=== PATIENT | female | born 1965 | race Caucasian/White ===

== ENCOUNTER 2024-06-11 21:07 | Inpatient (IN) | payer OTHER, SELFPAY ==
[2024-06-11] VITALS (7 sets, daily range): BP systolic 96–146; BP diastolic 65–94; BMI 29.1
[2024-06-11 15:49] LABS: % Basophils 0.1 % (0-2); % Eosinophils 0.4 % (0-6); % Immature Granulocytes 2.1 % (0-0.5); % Lymphocytes 8.9 % (20.5-51.1); % Monocytes 4.1 % (1.7-9.3); % Neutrophils 84.4 % (42.2-75.2); Absolute Eosinophils 0.1 10^3/uL (0-0.7); Absolute Immature Granulocytes 0.3 10^3/uL (0-0.05); Absolute Lymphocytes 1.2 10^3/uL (1.2-3.4); Absolute Monocytes 0.6 10^3/uL (0.1-0.6); Absolute Neutrophils 11.8 10^3/uL (1.4-6.5); Hematocrit 26.3 % (37.0-47.0); Hemoglobin 9.4 g/dL (12.0-16.0); Mean Corp Hgb Conc. 35.7 g/dL (33.0-37.0); Mean Corpuscular Hgb 33.9 pg (27.0-31.0); Mean Corpuscular Volume 94.9 fL (81.0-99.0); Mean Platelet Volume 10.4 fL (7.4-10.4); Nucleated Red Blood Cells % 0 %; Platelet Count 226 10^3/uL (130-400); Red Blood Cell Count 2.77 10^6/uL (4.20-5.40); Red Cell Dist. Width 12.8 % (11.5-14.5)
[2024-06-11 15:57] LABS: Urine Albumin Trace (Neg - Trace); Urine Bilirubin Negative (Negative); Urine Character Clear (Clear); Urine Color Yellow; Urine Glucose 3+ (Negative); Urine Ketone Negative (Negative); Urine Leukocyte Trace (Negative); Urine Nitrite Negative (Negative); Urine Occult Blood Negative (Negative); Urine Urobilinogen Negative (Neg - 1+)
[2024-06-11 16:09] LABS: Urine Bacteria Few (Negative); Urine Red Blood Cell 0-2 /HPF (0-2)
[2024-06-11 16:15] LABS: ALT (SGPT) 17 U/L (0-35); AST (SGOT) 27 U/L (14-36); Albumin 4.2 g/dl (3.5-5.0); Alkaline Phosphatase 139 U/L (38-126); Blood Urea Nitrogen 39 mg/dl (7-17); Calcium 9.1 mg/dl (8.4-10.2); Carbon Dioxide 15 mmol/L (22-30); Chloride 100 mmol/L (98-107); Glucose 609 mg/dl (70-99); Lipase 457 U/L (23-300); Potassium 4.4 mmol/L (3.5-5.1); Sodium 129 mmol/L (135-145); Total Bilirubin 0.5 mg/dl (0.2-1.3); Total Protein 6.8 g/dl (6.3-8.2); eGFR 36.69
--- NOTE | 2024-06-11 16:22 | ED.GENMED ---
History of Present Illness
General
Chief Complaint: Abdominal Pain
Source: patient
Exam Limitations: none
Time Seen by Provider: 06/11/24 16:10
Nursing documentation reviewed up to this point in time: agreed with
History of Present Illness
History of Present Illness:
58-year-old female past medical history of insulin-dependent diabetes, hypertension hyperlipidemia presenting to the emergency department with 3 days of worsening right lower quadrant abdominal pain. Denies any nausea vomiting diarrhea or urinary
symptoms. She self-admittedly has not been checking her sugar level over the past few months
Past History
Past History
ED Past Medical History: None
ED Past Surgical History: None
Review of Systems
Review of Systems
Allergies reviewed?: Yes
All Other Systems: ROS reviewed and negative except as documented in HPI and ROS
Phy Exam
Physical Exam
Physical Exam:
GENERAL: Alert , in no apparent distress
EYE: pupils equal and reactive
NECK: Supple, no significant adenopathy.
ENT: o/p clr, mmm.
CARDIAC: Regular rate and rhythm .
LUNGS: Clear breath sounds bilaterally, no acute respiratory distress, no wheezes/rales/rhonchi
ABDOMEN: Right lower quadrant pain to palpation otherwise soft benign abdomen
NEUROLOGICAL: Alert and oriented, no focal neuro deficits
SKIN: Warm and dry, skin intact.
MUSCULOSKELETAL: No edema, well perfused.
PSYCH: Normal and appropriate interaction.
Course
Orders/Labs/Results
Orders:
Orders
06/11/24 15:30
Complete Blood Count/With Diff Urgent
Comprehensive Metabolic Panel Urgent
Lipase Urgent
Urinalysis Reflex To Culture Urgent
Date Specimen was Collected: 06/11/24
Time Specimen was Collected: 15:18
Urine Microscopic Reflex Cult Urgent
06/11/24 16:21
0.9% Sodium Chloride 1000 ml [Nss] 1,000 ml IV BOLUS
06/11/24 16:38
CT Abd/Pel (IV only)-DH only Urgent
Comment:
Reason For Exam: rlq pain
06/11/24 16:45
B-Hydroxybutyrate Urgent
Venous Blood Gas Urgent
%Oxygen/Room Air: 99
06/11/24 16:51
Lactic Acid Urgent
06/11/24 18:15
Reg Insulin 100 Units/100 ml [Novolin R Insulin Infusion] 100 units in 100 ml IV ORDERED RATE
06/11/24 19:34
CefTRIAXone [Rocephin] 1,000 mg IV NOW STA
MetroNIDAZOLE 500 MG/100 ML [Flagyl 500 mg] 100 ml IV NOW
06/11/24 19:44
HYDROmorphone [Dilaudid] 0.5 mg IV NOW STA
06/11/24 20:14
Admit/Transfer Patient As Directed
Co-Sign Provider:
Level of Care: Inpatient admission
Assign to:: ICU
Physician / Group: hospitalist
Diagnosis: dka, appendicitis
Reason for Hospitalization: appendicitis
Expected length of stay greater than two midnights?: Yes
ELOS- Estimated Length of Stay in days: 2
I certify the patient meets the requirements for IP care: Yes
PRN Pain Medication Management As Directed
May give lesser potent ordered pain med per pt: Yes
preference::
Protocol:: Medication orders for pain may be administered in a
manner that supports deferring to patient preference
when the pt is:
- Requesting an ordered lesser potent pain medication.
Least to most potent pain medications are defined
as: acetaminophen < NSAID < tramadol < opioids
(morphine, oxycodone, hydromorphone).
- Requesting a lesser dose of the same medication IF
ORDERED.
- Requesting a less intrusive route of administration
if both routes are prescribed by the provider (PO <
IV).
06/11/24 20:15
Code Status As Directed
Resuscitation Status: Full Code
Abnormal Lab Results
06/11/24 06/11/24 06/11/24
15:30 16:45 19:42
WBC 14.0 H 10^3/uL
(4.8-10.8)
RBC 2.77 L 10^6/uL
(4.20-5.40)
Hgb 9.4 L g/dL
(12.0-16.0)
Hct 26.3 L %
(37.0-47.0)
MCH 33.9 H pg
(27.0-31.0)
Abs Immat Gran (auto) 0.3 H 10^3/uL
(0-0.05)
Absolute Neuts (auto) 11.8 H 10^3/uL
(1.4-6.5)
Immature Gran % 2.1 H %
(0-0.5)
Neutrophils % 84.4 H %
(42.2-75.2)
Lymphocytes % 8.9 L %
(20.5-51.1)
VBG pH 7.28 L
(7.32-7.43)
VBG HCO3 17.4 L mmol/L
(22-27)
Sodium 129 L mmol/L
(135-145)
Carbon Dioxide 15 L mmol/L
(22-30)
BUN 39 H mg/dl
(7-17)
Creatinine 1.6 H mg/dL
(0.6-1.0)
Glucose 609 H* mg/dl
(70-99)
Alkaline Phosphatase 139 H U/L
(38-126)
Lipase 457 H U/L
(23-300)
Leukocyte Esterase Rfl Trace A
(Negative)
Urine Bacteria (Reflex) Few A
(Negative)
Urine Glucose 3+ A
(Negative)
POC Glucose 282 H mg/dl
(70-99)
06/11/24 15:30
06/11/24 15:30
Vital Signs
Initial and Last Documented VS:
Initial Vital Signs
Temp Pulse Resp BP Pulse Ox
97.8 F 110 16 143/79 98
06/11/24 15:14 06/11/24 15:14 06/11/24 15:14 06/11/24 15:14 06/11/24 15:14
Last Documented Vital Signs
Temp Pulse Resp BP Pulse Ox
98.2 F 110 14 110/78 99
06/11/24 18:00 06/11/24 20:15 06/11/24 20:15 06/11/24 18:06 06/11/24 18:45
MDM/Problems Addressed
MDM/Problems Addressed:
58-year-old female presenting to the emergency department with worsening right lower quad abdominal pain over the past 3 days. No fevers mildly tachycardic on arrival. Does have a white count of 14. Sugar level 609. She admittedly has not been
checking her sugar over the past few months. Has been taking her routine dose of insulin but is unsure if this is enough insulin. Creatinine level 1.6 BUN of 39 does appear clinically dehydrated started on a liter of fluid. CT scan showing
appendicitis. Plan to admit for further care overnight and surgical consultation.
*Critical Care Note
Total Time (30-74mins, 75-104mins- exclusive of procedures): Not Applicable
ED Attending Note
-
Portions of this chart may have been created with voice recognition software.� Occasional wrong word or��sound alike� substitutions may have occurred due to the inherent limitations of voice recognition software.
Discharge Plan
Departure
Patient Disposition: Admit
Date of Disposition: 06/11/24
Time of Disposition: 20:29
Admit to: Med/Surg
Admit to doctor: Shashank
Presentation/result/management discussed w/ accepting MD/DO: Hospitalist
Patient with high blood pressure during this ER visit?: No
Condition: Good
Covid-19: Not Applicable
Discharge Problem:
DKA (diabetic ketoacidosis), Acute appendicitis
Prescriptions:
No Action
cyanocobalamin (vitamin B-12) 1,000 MCG tablet
1,000 mcg PO DAILY
montelukast 10 MG tablet
10 mg PO QPM
melatonin 5 MG tablet
10 mg PO HS
acetaminophen [Tylenol] 325 mg Tablet
650 mg PO Q6HPRN PRN (Reason: mild pain)
metoprolol succinate [Toprol XL] 50 mg Tablet Extended Release 24 Hr
50 mg PO DAILY
fenofibrate micronized [Tricor] 134 mg Capsule
134 mg PO DAILY
alprazolam [Xanax] 0.5 mg Tablet
0.5 mg PO BIDPRN PRN (Reason: anxiety)
losartan 25 mg Tablet
25 mg PO DAILY
rosuvastatin [Crestor] 40 mg Tablet
40 mg PO DAILY
Trulicity 0.75 mg/0.5 mL Pen Injector
0.75 mg SC TU
Asmanex HFA 100 mcg/actuation Hfa Aerosol Inhaler
1 inh INHALATION R BID
insulin glargine [Lantus U-100 Insulin] 1,000 UNITS/10 ML solution
40 units SC HS
insulin aspart U-100 [Novolog FlexPen U-100 Insulin] 300 UNITS/3 ML insulin pen
5 - 10 units SC AC
Referrals:
Jean Marie Mancia MD [Family Provider] -
Interventions
Interventions:
*Risk Screen - Suicide Last Done: 06/11/24 15:14
*General Assessment Last Done: 06/11/24 17:00
*Neglect/Abuse Screening Last Done: 06/11/24 15:14
ED- Fall Risk Assessment Last Done: 06/11/24 17:00
SZ-Vvdejr-Sftdfdudxi Assessment Last Done: 06/11/24 17:00
Discharge Date and Time
Print Language: WELSH
[2024-06-11] MEDS: NSS 1000 IV (16:42)
[2024-06-11 17:00] LABS: Venous Blood Gas B.E. -8.6 mmol/L (-4 to +4); Venous Blood Gas HCO3 17.4 mmol/L (22-27); Venous Blood Gas O2 Sat % 62.2 %; Venous Blood Gas pCO2 37 mmHg (35-48); Venous Blood Gas pH 7.28 (7.32-7.43); Venous Blood Gas pO2 37 mmHg (30-50)
[2024-06-11 17:10] LABS: Lactic Acid 1.2 mmol/L (0.7-2.0)
[2024-06-11 17:27] LABS: B-Hydroxybutyrate 0.08 mmol/L (0.02-0.27)
[2024-06-11] MEDS: NOVOLIN R INSULIN INFUSION 100 IV (18:33)
[2024-06-11 19:44] LABS: Glucose - Point of Care 282 mg/dl (70-99)
[2024-06-11] MEDS: ROCEPHIN 1000 MG IV (19:59)
[2024-06-11] MEDS: DILAUDID 0.5 MG IV (20:01)
[2024-06-11] MEDS: FLAGYL 500 MG 100 IV (20:03)
--- NOTE | 2024-06-11 20:03 | HPS.HSE ---
Family Physician
-
Family Physician: Jean Marie Mancia MD
Chief Complaint
-
Abdominal pain
History of Present Illness
This is a 58-year-old with past medical history significant for asthma, insulin-dependent diabetes and hyperlipidemia who presents to the emergency department with approximately 2 to 3 days of abdominal pain.
Patient reports abdominal pain began suddenly about 2 days ago and is localized to the right lower quadrant. There was no associated nausea or vomiting. She denies having any fevers or chills. She did not measure her temperature at home. She
reported that she went to urinate this morning and had a severe abdominal pain and ripping sensation in her right lower quadrant. She denies any urinary symptoms. She called her physician who recommended that she come to the emergency department
due to the severe pain. Patient with that she did take her Lantus the previous evening. She did not take her morning insulin today.
In the emergency department she was found to be normotensive with a blood pressure of 110/78 pulse of 103 respiratory was elevated at 29 and she was afebrile satting 99% on room air. She abnormal electrolytes with sodium of 129, bicarb of 15 with
elevated anion gap. Beta-hydroxybutyrate was only 0.08. She had elevations in BUN/creatinine to 39 and 1.6. Her lipase was also elevated with otherwise normal LFTs. pH 7.28. CBC with a white count of 14, hemoglobin 9.1 platelet count of 226.
CT of the abdomen pelvis shows acute uncomplicated appendicitis.
Medical History
Past Medical History
Past Medical History: Reports Asthma, Hypercholesterolemia and IDDM
Past Surgical History: Reports
Social History
Tobacco: Non-smoker
Alcohol: Occasional
Drug: None
Living: With Family
Employment: Employed
Family History
Family History: Not pertinent
Allergies / Home Medications
Allergies reflects when Allergies were last updated in [employer].
Home Medications with original date entered in [employer]
Allergy/Medication List:
Allergies
Allergy/AdvReac Type Severity Reaction Status Date / Time
Penicillins Allergy hot, Verified 06/11/24 15:16
hives,
itchy
Home Medications
cyanocobalamin (vitamin B-12) 1,000 mcg tablet 1,000 mcg PO DAILY 11/21/19
melatonin 5 mg tablet 10 mg PO HS 11/21/19
montelukast 10 mg tablet 10 mg PO QPM 11/21/19
acetaminophen 325 mg tablet (Tylenol) 650 mg PO Q6HPRN PRN mild pain 06/11/24
alprazolam 0.5 mg tablet (Xanax) 0.5 mg PO BIDPRN PRN anxiety 06/11/24
dulaglutide 0.75 mg/0.5 mL subcutaneous pen injector (Trulicity) 0.75 mg SC TU 06/11/24
fenofibrate micronized 134 mg capsule 134 mg PO DAILY 06/11/24
insulin aspart U-100 100 unit/mL (3 mL) subcutaneous pen (Novolog FlexPen U-100 Insulin aspart) 5 - 10 units SC AC 06/11/24
insulin glargine 100 unit/mL subcutaneous solution (Lantus U-100 Insulin) 40 units SC 06/11/24
losartan 25 mg tablet 25 mg PO DAILY 06/11/24
metoprolol succinate 50 mg tablet,extended release 24 hr (Toprol XL) 50 mg PO DAILY 06/11/24
mometasone 100 mcg/actuation HFA aerosol inhaler (Asmanex HFA) 1 inh inhalation R BID 06/11/24
rosuvastatin 40 mg tablet (Crestor) 40 mg PO DAILY 06/11/24
Review of Systems
-
History Source: Patient
Constitutional: Reports No Symptoms
EENT: Reports No Symptoms
Respiratory: Reports No Symptoms
Cardiac: Reports No Symptoms
Abdomen/GI: Reports Abdominal Pain
: Reports No Symptoms
Musculoskeletal: Reports No Symptoms
Skin: Reports No Symptoms
Neurological: Reports No Symptoms
Endocrine: Reports No Symptoms
Hematologic/Lymphatic: Reports No Symptoms
Psych: Reports No Symptoms
Physical Exam
Vital Signs
Vital Signs
Temp Pulse Resp BP Pulse Ox
98.2 F 103 29 110/78 99
06/11/24 18:00 06/11/24 18:45 06/11/24 18:45 06/11/24 18:06 06/11/24 18:45
Physical Exam
General: Well Developed, Well Nourished and Pain
HEENT: NormoCephalic, Anicteric, Moist mucous membranes and Atraumatic
Respiratory: Clear
Cardiac: S1/S2 and Regular Rhythm
Breast: Deferred by me
GI: Soft, Non Distended, Normal Bowel Sounds and Tender
Rectal: Deferred by Provider
Genito-urinary: Deferred by me
Musculoskeletal: No Clubbing, No Cyanosis and No Edema
Skin: Warm
Neuro: AO x 3 and Nonfocal/grossly intact
Hematologic/Lymphatic: No Lymphadenopathy
Psych: Calm
Laboratory Results
-
06/11/24 15:30
06/11/24 15:30
Laboratory Results
Lactic Acid 1.2 mmol/L (0.7-2.0) 06/11/24 16:51
Total Bilirubin 0.5 mg/dl (0.2-1.3) 06/11/24 15:30
AST 27 U/L (14-36) 06/11/24 15:30
ALT 17 U/L (0-35) 06/11/24 15:30
Alkaline Phosphatase 139 U/L (38-126) H 06/11/24 15:30
Lipase 457 U/L (23-300) H 06/11/24 15:30
Data Reviewed
-
CT Scan: Report Reviewed by me
Lab Data: Labs Reviewed by me
Old Records: Reviewed
Impression/Plan
-
IMPRESSION:
58 y.o female with hyperglycemia, DKA and uncomplicated appendicitis.
PLAN:
1. Appendicitis
- admit tomed/surg
- surgery aware
- no recent hospitalizations or abx use, pcn allergy, continue ceftriaxone/flagyl for now
- npo, pain control and antiemetics
2. DKA - 2/2 acute inflammatory process. Mild. AG 14. Glucose 600 initially, now 300. DKA resolved.
- continue iv fluids
- insulin sliding scale moderate q6h
3. HTN
- hold losartan for now
- continue metoprolol
4. TOOTIE - suspect hypovolemic vs ATN
- hold losartan
- iv fluids
- avoid further nephrotoxins
4. HLD
- hold statin
5. Asthma - stable.
- continue montelukast, prn nebs
6. Pancreatitis - No obvious etiology. Reported that she abstained from etoh until a few days ago when she had a small drink. No biliary anomaly on CT (The liver, spleen, kidneys, adrenal glands and pancreas are within normal limits. Gallbladder
is without calcified stones)
- trend lfts
- consider u/s for radioopaque stones
- npo, iv fluids for now
DVT PPX - heparin sq
Code status - full code
[2024-06-11 20:49] LABS: Glucose - Point of Care 150 mg/dl (70-99)
[2024-06-11 21:47] LABS: Glucose - Point of Care 141 mg/dl (70-99)
[2024-06-12] VITALS (10 sets, daily range): BP systolic 107–144; BP diastolic 70–87; BMI 28.4
[2024-06-12 00:49] LABS: Glucose - Point of Care 185 mg/dl (70-99)
[2024-06-12] MEDS: NOVOLOG FLEXPEN-MODERATE RESISTANCE 1 UNITS SC ×2 (01:34→06:29)
[2024-06-12] MEDS: HEPARIN 5000 UNITS SC ×2 (01:34→17:09)
[2024-06-12] MEDS: DILAUDID 0.5 MG IV ×3 (01:34→20:29)
[2024-06-12] MEDS: LR 1000 IV (01:35)
[2024-06-12] MEDS: FLAGYL 500 MG 100 IV ×3 (04:38→20:29)
--- NOTE | 2024-06-12 05:03 | PTCARENOTE ---
Pt received from ED via stretcher. Ambulated to bed independently w/o incident. Oriented to surroundings and plan of care discussed. Admission and assessment completed. #18 RAC patent, #22 LW redressed and LR running at 125 mL/hr w/o
complication. Medicated w/IV dilaudid for RLQ abd pain (refer to MAR). Instructed to ring for assist when ambulating to BR, verbalizes understanding. Call shannon w/in reach.
[2024-06-12 06:24] LABS: Glucose - Point of Care 179 mg/dl (70-99)
[2024-06-12 06:38] LABS: Hematocrit 21.3 % (37.0-47.0); Hemoglobin 7.6 g/dL (12.0-16.0); Mean Corp Hgb Conc. 35.7 g/dL (33.0-37.0); Mean Corpuscular Hgb 33.9 pg (27.0-31.0); Mean Corpuscular Volume 95.1 fL (81.0-99.0); Mean Platelet Volume 10.4 fL (7.4-10.4); Platelet Count 142 10^3/uL (130-400); Red Blood Cell Count 2.24 10^6/uL (4.20-5.40); Red Cell Dist. Width 12.7 % (11.5-14.5); White Blood Cell Count 10.4 10^3/uL (4.8-10.8)
[2024-06-12 06:40] LABS: INR 1.08; PT 14.6 Sec (11.4-14.6)
[2024-06-12 06:58] LABS: Blood Urea Nitrogen 27 mg/dl (7-17); Calcium 8.5 mg/dl (8.4-10.2); Carbon Dioxide 12 mmol/L (22-30); Chloride 110 mmol/L (98-107); Estimated Creatinine Clearance 42 ml/min; Glucose 164 mg/dl (70-99); Sodium 136 mmol/L (135-145); eGFR 51.82
[2024-06-12 07:03] LABS: Potassium 3.9 mmol/L (3.5-5.1)
[2024-06-12 07:37] LABS: Hepatitis C Antibody Negative (Negative)
[2024-06-12] MEDS: HEPARIN SC ×2 (08:41→13:29)
[2024-06-12] MEDS: SODIUM BICARBONATE 1150 MEQ IV (08:41)
[2024-06-12] MEDS: TOPROL XL PO (08:42)
[2024-06-12] MEDS: ROCEPHIN 2000 MG IV (09:29)
[2024-06-12] MEDS: STERILE WATER FOR INJECTION 20 ML IV (09:30)
--- NOTE | 2024-06-12 10:37 | CON.GS ---
Addendum entered and electronically signed by Collin Davis MD 06/12/24 10:58:
I saw and examined the patient.
The C Java Developer's note was reviewed and I agree with the note.
Comment: 1 week of symptoms, generalized abd pain that migrated to RLQ. Poorly compliant with IDDM. ttp to rlq on exam. CT c/w acute uncomplicated appendicitis. OCTOR for lap appy
Original Note:
Consultation
-
Date/Time Consultation Requested: 06/12/248
Requesting Provider: Shashank
Medical History
-
Chief Complaint: RLQ pain
History of Present Illness:
Ms Colbert is a 58 yo female with IDDM and asthma who developed generalized abdominal pain on Thursday 06/08. She thought she had caught a GI bug and has been working from home since. Around Saturday, the pain localized to the RLQ and has persisted in
that location since. She has tried Tylenol and hot packs without much benefit. She denies fevers or chills. She denies nausea or vomiting. She does note pain with urination in her pelvis. Last night, she notes the pain was so bad she was tearful and
called her primary care doctor's service and was told to come to the ED for evaluation. On exam, she is markedly tender to the RLQ with some tenderness extending into the lower pelvis. She is not sure what her blood sugars have been at home as she
notes [facility] has been out of stock with her CGM device for some months and she has not been using her glucometer, but does note she has been taking her Lantus as per usual, she does have follow up with her PCP to discuss her diabetes on Saturday.
Past Medical History
Past Medical History: Asthma, Hypercholesterolemia and IDDM
Past Surgical History: and Orthopedic (ORIF left arm)
Social History
Tobacco: Non-Smoker
Alcohol: Occasional
Drug: None
Living: With Family
Employment: Employed
Family History
Family History: Reviewed & Not Pertinent
Allergies / Home Medications
Allergy/AdvReac Type Severity Reaction Status Date / Time
Penicillins Allergy hot, Verified 06/11/24 15:16
hives,
itchy
�Medication �Instructions �Recorded �Confirmed �Type
cyanocobalamin (vitamin B-12) 1,000 mcg PO DAILY 11/21/19 06/11/24 History
1,000 mcg tablet
melatonin 5 mg tablet 10 mg PO HS 11/21/19 06/11/24 History
montelukast 10 mg tablet 10 mg PO QPM 11/21/19 06/11/24 History
acetaminophen 325 mg tablet 650 mg PO Q6HPRN PRN mild pain 06/11/24 06/11/24 History
(Tylenol)
alprazolam 0.5 mg tablet (Xanax) 0.5 mg PO BIDPRN PRN anxiety 06/11/24 06/11/24 History
dulaglutide 0.75 mg/0.5 mL 0.75 mg SC 06/11/24 06/11/24 History
subcutaneous pen injector
(Trulicity)
fenofibrate micronized 134 mg 134 mg PO DAILY 06/11/24 06/11/24 History
capsule
insulin aspart U-100 100 unit/mL 5 - 10 units SC 06/11/24 06/11/24 History
(3 mL) subcutaneous pen (Novolog
FlexPen U-100 Insulin aspart)
insulin glargine 100 unit/mL 40 units SC 06/11/24 06/11/24 History
subcutaneous solution (Lantus
U-100 Insulin)
losartan 25 mg tablet 25 mg PO DAILY 06/11/24 06/11/24 History
metoprolol succinate 50 mg 50 mg PO DAILY 06/11/24 06/11/24 History
tablet,extended release 24 hr
(Toprol XL)
mometasone 100 mcg/actuation HFA 1 inh inhalation R BID 06/11/24 06/11/24 History
aerosol inhaler (Asmanex HFA)
rosuvastatin 40 mg tablet (Crestor) 40 mg PO DAILY 06/11/24 06/11/24 History
Review of Systems
-
History Source: Patient
All other systems: Negative unless noted
A 10 point review of systems was completed, and was negative except as per HPI.
Physical Exam
Vital Signs
Temp Pulse Resp BP Pulse Ox
98.3 F 88 16 107/70 98
06/12/24 08:03 06/12/24 08:42 06/12/24 08:03 06/12/24 08:42 06/12/24 08:03
06/11/24 06/12/24 06/13/24
06:59 06:59 06:59
Actual Weight 65.998 kg
Body Mass Index (BMI) 28.4
Lab Results
06/12/24 05:29
WBC 10.4 10^3/uL (4.8-10.8) 06/12/24 05:29
Hgb 7.6 g/dL (12.0-16.0) L 06/12/24 05:29
Hct 21.3 % (37.0-47.0) L 06/12/24 05:29
Plt Count 142 10^3/uL (130-400) D 06/12/24 05:29
Abs Immat Gran (auto) 0.3 10^3/uL (0-0.05) H 06/11/24 15:30
Neutrophils % 84.4 % (42.2-75.2) H 06/11/24 15:30
Physical Exam
General: Well Developed
HEENT: Moist Mucous Membranes
Respiratory: Non Labored Respirations
GI: Soft, Non Distended and Tender (RLQ into pelvis)
Skin: Warm and Dry
Neuro: Awake, Alert and AO x 3
Psych: Calm
Data Reviewed
-
CT Scan: Image Personally Visualized and interpreted, Report Reviewed by me, Discussed with Physician and Discussed with Patient
Labs: Labs Reviewed by me, Discussed with Physician and Discussed with Patient
Old Records: Reviewed
Assessment / Plan
-
58 yo female with a h/o poorly controlled IDDM with a 5 day history of abdominal pain which was initially generalized and then localized to the RLQ with tenderness present on exam. Acidotic on presentation with blood glucose of 609 consistent with
DKA in setting of acute infection. Anion gap of 14 on AM labs, with bicarb infusing. Cr. 1.6 on presentation, now trended down to 1.2. Blood glucose now 164, A1c pending. Normal potassium. Leukocytosis on presentation of 14.0 now 10.4 s/p ABX. Ct
imaging, history and exam consistent with acute appendicitis. Afebrile with normal vital signs.
--Plan OR for laparoscopic appendectomy
--Continue ABX
--Trend labs, management of acidosis as per primary team
--Keep NPO
--IVF as per primary team
--Analgesics/antiemetics prn
[2024-06-12 10:39] LABS: Glycohemoglobin (HgbA1c) 9.6 % (4.0-5.6)
--- NOTE | 2024-06-12 11:21 | W.PN.HOSP.TC ---
Today's Communication/Plan
-
see outlined plan
Assessment / Plan
Assessment / Plan
Assessment:
Acute uncomplicated appendicitis
- GS following, utility worker production for OR/appendectomy today
- continue Rocephin, Flagyl, day 1
- pain control, anti-emetics, IVF while NPO
TOOTIE with acute metabolic acidosis in setting of appendicitis, uncontrolled IDDM
Acute hyponatremia
- continue IVF - switch to bicarbonate IVF and repeat BMP this afternoon
- hold nephrotoxins
Poorly controlled IDDM, exacerbated by acute appendicitis
- labelled initially as DKA but initial gap 14 and pH on VBG 7.28, no ketone on UA, BHB normal. not consistent with DKA
- s/p insulin drip; BS <200 rapidly
- continue SSI while NPO
- GROMMET MAN consulted
- A1c 9.6%
Elevated Lipase
- not consistent with pancreatitis, likely reactive to acute appendicitis
- repeat in AM
Essential HTN
- continue BB perioperatively
- hold ARB
HLD - hold statin
Asthma - stable.
- continue montelukast, prn nebs
DVT ppx: SC heparin
Code: Full
Anticipated Discharge: > 48 hours
Subjective/Interval History
-
Date of Service: June 12, 2024
reports RLQ and lower abd pain c/w appendicitis
awaiting surgery timing
Objective Data
-
Labs:
Laboratory Results
06/12/24 06/12/24 06/12/24
00:38 05:29 14:00
WBC 10.4
Hgb 7.6 L
Hct 21.3 L
Plt Count 142 D
PT 14.6
INR 1.08
Sodium Cancelled 136 Pending
Potassium Cancelled 3.9 Pending
Chloride Cancelled 110 H Pending
Carbon Dioxide Cancelled 12 L* Pending
BUN Cancelled 27 H Pending
Creatinine Cancelled 1.2 H Pending
Glucose Cancelled 164 H Pending
Calcium Cancelled 8.5 Pending
Vital Signs:
Vital Signs
Temp Pulse Resp BP Pulse Ox
98.3 F 88 16 107/70 98
06/12/24 08:03 06/12/24 08:42 06/12/24 08:03 06/12/24 08:42 06/12/24 08:03
I&O
06/11/24 06/12/24 06/13/24
06:59 06:59 06:59
Intake Total 100 / 100
Balance 100 / 100
Physical Exam
-
General: Appears in Distress and Pain
HEENT: Normocephalic and Atraumatic
Respiratory: Clear to Auscultation; Negative Wheezes or Rales
Cardiac: Regular Rhythm and S1/S2
GI: Tender (RLQ into pelvis)
Musculoskeletal: No Edema
Neuro: AO x 3
Psych: Calm
Data Reviewed
-
Total Time Spent with Patient (in minutes): 45
Diagnostic Radiology: Report Reviewed by me
Labs: Labs Reviewed by me
[2024-06-12 11:41] LABS: Glucose - Point of Care 153 mg/dl (70-99)
--- NOTE | 2024-06-12 11:56 | PN.DE.MGMTRT ---
Insulin Management
- -
06/12/2024 Diabetes Management Consult
Patient admitted 06/11 with abdominal pain - appendicitis. PMH diabetes for 10 years, HTN, HLD. Prior to admission was taking trulicity .75 on Saturday, 5 - 10 units of novolog AC and 40 units lantus @ hs. A1C on admission 9.6%, cr 1.2, eGFR 57.82.
Patient is awake alert and oriented resting in bed, able to discuss diabetes management. at bedside and very supportive. Patient states she originally took pills for about 5 years but then was switched to insulin. She has a working
glucose monitor and has used a CGM but states they are out of stock for 6 months so has not tested her glucose for 6 months.
Glucose on admission 609, has received fluids. For OR today.
Will give 10 units of lantus now and 40 @ hs. Will start 5 units novolog AC with moderate corrective in AM. When appropriate diet should be 1600 calories.
Discussed at length importance of glucose control, she states she knows by how she feels how much insulin to take. Advised it is best to test glucose before administering insulin. endorsed importance of testing.
Will follow.
Diabetes History
- -
Type of Diabetes: 2 requiring insulin
Pre-Admission Diabetes Regimen
06/11/24 06/12/24 06/12/24
15:30 00:38 05:29
Creatinine 1.6 H Cancelled 1.2 H
Lab Results
Hemoglobin A1c 9.6 % (4.0-5.6) H 06/12/24 05:29
Insulin Pump Settings
IP Diabetes Regimen
06/11/24 06/11/24 06/11/24
15:30 19:42 20:47
Glucose 609 H*
POC Glucose 282 H 150 H
06/11/24 06/12/24 06/12/24
21:45 00:38 00:48
Glucose Cancelled
POC Glucose 141 H 185 H
06/12/24 06/12/24 06/12/24
05:29 06:23 11:39
Glucose 164 H
POC Glucose 179 H 153 H
Patient Education
[2024-06-12] MEDS: NOVOLOG FLEXPEN-MODERATE RESISTANCE SC (12:56)
--- NOTE | 2024-06-12 14:43 | OR.RPT ---
Operative Report
Operative Report
Primary Surgeon: Ryan
Assisting: AP Higginbotham Muntzer, RNFA
Pre-op Diagnosis: Acute appendicitis
Post-op Diagnosis: Same
Procedure Performed: Laparoscopic appendectomy
Anesthesia Type: GETA
Specimen / Cultures: Appendix
Estimated Blood Loss: 5cc
Complications: None immediate
Operative Findings: Inflamed distal appendix adherent to pelvic sidewall and fallopian tube; no pus or gangrene, no free fluid in pelvis
Date of Surgery: 06/12/24
Indications: This 58F developed right lower quadrant abdominal pain and on workup was found to have acute appendicitis. She was also severely hyperglycemic, she responded well to insulin gtt. Laparoscopic appendectomy was planned.
Description of procedure: The patient was placed on the operating table in the supine position. General anesthesia was induced. A time-out was completed verifying correct patient, procedure, site, positioning, and special equipment prior to
beginning this procedure. An orogastric tube was placed. The abdomen was prepped and draped in the usual sterile fashion. A stab incision was made in left upper quadrant and the Veress needle was inserted. Proper position was confirmed by aspiration
and saline meniscus test. The abdomen was insufflated with carbon dioxide to a pressure of 12 mmHg. The patient tolerated insufflation well.
A 5mm optical trocar was then inserted at the left lower quadrant. The laparoscope was inserted and the abdomen inspected. No injuries from initial trocar placement or Veress needle insertion were noted. Additional trocars were then inserted in the
following locations: a 12-mm trocar at the umbilicus and a 5-mm trocar midline in the suprapubic space. The abdomen was inspected and no abnormalities were found. The table was placed in the Trendelenburg position with the right side up. The
appendix was severely inflamed at the distal aspect and adherent t pelvic sidewall and fallopian tube. It was gently bluntly teased away from those structures. A window was created in the appendiceal mesentery and the appendix was taken at its base
with the laparoscopic linear cutting stapler with a 45mm fraser load. It was then liberated from remaining mesenteric and inflammatory attachments with the voyant device taking care to protect the terminal ileum and fallopian tube. The appendix was
placed in an endoscopic retrieval bag, removed through the umbilical port, and passed off the table as a specimen.
We then turned our attention to the staple line, which was noted to be hemostatic. All free fluid was suctioned. The umbilical trocar site was closed at the fascial level laparoscopically with 2-0 PDS under direct vision. Secondary trocars were
removed under direct vision and noted to be hemostatic. The laparoscope was withdrawn and the abdomen was allowed to collapse. The skin was closed with subcuticular sutures of 4-0 monocryl and topical skin adhesive. The orogastric tube was removed.
The patient tolerated the procedure well and was taken to the postanesthesia care unit in stable condition.
[2024-06-12 15:29] LABS: Glucose - Point of Care 192 mg/dl (70-99)
[2024-06-12] MEDS: SUBLIMAZE 25 MCG IV (15:51)
[2024-06-12] MEDS: NOVOLOG vial 2 UNITS SC (16:04)
[2024-06-12 17:16] LABS: Glucose - Point of Care 298 mg/dl (70-99)
[2024-06-12] MEDS: NOVOLOG FLEXPEN-MODERATE RESISTANCE 5 UNITS SC (17:17)
--- NOTE | 2024-06-12 17:40 | PN.DIAED10 ---
Update Note
- Diabetes Education Update Note
Notes:
06/12/2024 Diabetes Management follow up
Returned to see patient, doing well eating dinner. Received AC novolog. Discussed with patient trying to be consistent with amount of carbohydrate eaten at each meal, she is agreeable. States she is not sure where her meter is or the name of it.
Recommended , who is at bedside, to obtain [employer] glucose monitor for home testing. To test glucose before each meal and HS, to administer insulin 10 minutes before each meal.
[2024-06-12 21:24] LABS: Blood Urea Nitrogen 33 mg/dl (7-17); Calcium 8.7 mg/dl (8.4-10.2); Carbon Dioxide 16 mmol/L (22-30); Chloride 103 mmol/L (98-107); Estimated Creatinine Clearance 34 ml/min; Glucose 541 mg/dl (70-99); Potassium 4.7 mmol/L (3.5-5.1); Sodium 130 mmol/L (135-145); eGFR 39.65
[2024-06-12 21:33] LABS: Glucose - Point of Care 549 mg/dl (70-99)
[2024-06-12 21:35] LABS: Glucose - Point of Care 554 mg/dl (70-99)
[2024-06-12] MEDS: NOVOLOG FLEXPEN 12 UNITS SC (21:54)
[2024-06-12] MEDS: MELATONIN 10 MG PO (21:54)
[2024-06-12] MEDS: LANTUS 0.4 UNITS SC (21:54)
[2024-06-12 22:27] LABS: Vitamin B12 696 pg/ml (239-931)
[2024-06-13] MEDS: HEPARIN 5000 UNITS SC ×2 (00:15→09:26)
[2024-06-13 00:16] LABS: Glucose - Point of Care 456 mg/dl (70-99)
--- NOTE | 2024-06-13 00:51 | PTCARENOTE ---
Pt's night time accu check was reading high and also a venous glucose read 541. This RN contacted [employer] for order and gave pt 12 units Novolog and their nightly 40 units of lantus. Recheck accucheck still read high, venous glucose sample sent to the
lab awaiting results.
[2024-06-13 01:05] LABS: ALT (SGPT) 19 U/L (0-35); AST (SGOT) 42 U/L (14-36); Albumin 3.4 g/dl (3.5-5.0); Alkaline Phosphatase 71 U/L (38-126); Blood Urea Nitrogen 33 mg/dl (7-17); Calcium 8.5 mg/dl (8.4-10.2); Carbon Dioxide 16 mmol/L (22-30); Chloride 102 mmol/L (98-107); Estimated Creatinine Clearance 34 ml/min; Glucose 392 mg/dl (70-99); Potassium 4.5 mmol/L (3.5-5.1); Sodium 131 mmol/L (135-145); Total Bilirubin 0.3 mg/dl (0.2-1.3); Total Protein 5.8 g/dl (6.3-8.2); eGFR 39.65
[2024-06-13] MEDS: NOVOLOG FLEXPEN-MODERATE RESISTANCE 9 UNITS SC (01:16)
[2024-06-13] MEDS: ROXICODONE 5 MG PO ×3 (01:22→10:01)
[2024-06-13 03:00] VITALS: BP 112/74
[2024-06-13] MEDS: FLAGYL 500 MG 100 IV ×2 (03:53→12:06)
[2024-06-13 04:03] LABS: Glucose - Point of Care 308 mg/dl (70-99)
[2024-06-13 06:32] LABS: Glucose - Point of Care 273 mg/dl (70-99)
[2024-06-13 08:05] VITALS: BP 125/79
[2024-06-13 08:16] LABS: Glucose - Point of Care 274 mg/dl (70-99)
[2024-06-13 08:51] LABS: Hematocrit 20.9 % (37.0-47.0); Hemoglobin 7.4 g/dL (12.0-16.0); Mean Corp Hgb Conc. 35.4 g/dL (33.0-37.0); Mean Corpuscular Hgb 33.5 pg (27.0-31.0); Mean Corpuscular Volume 94.6 fL (81.0-99.0); Mean Platelet Volume 10.6 fL (7.4-10.4); Platelet Count 143 10^3/uL (130-400); Red Blood Cell Count 2.21 10^6/uL (4.20-5.40); Red Cell Dist. Width 12.3 % (11.5-14.5); White Blood Cell Count 10.2 10^3/uL (4.8-10.8)
[2024-06-13 08:56] LABS: Blood Urea Nitrogen 31 mg/dl (7-17); Calcium 8.8 mg/dl (8.4-10.2); Carbon Dioxide 16 mmol/L (22-30); Chloride 104 mmol/L (98-107); Estimated Creatinine Clearance 39 ml/min; Glucose 244 mg/dl (70-99); Lipase 414 U/L (23-300); Potassium 4.3 mmol/L (3.5-5.1); Sodium 132 mmol/L (135-145); eGFR 47.08
[2024-06-13] MEDS: TOPROL XL 50 MG PO (09:26)
[2024-06-13] MEDS: ROCEPHIN 2000 MG IV (10:00)
[2024-06-13] MEDS: STERILE WATER FOR INJECTION 20 ML IV (10:01)
[2024-06-13 11:32] VITALS: BP 130/87
[2024-06-13 11:46] LABS: Glucose - Point of Care 232 mg/dl (70-99)
[2024-06-13] MEDS: NOVOLOG FLEXPEN-MODERATE RESISTANCE SC (12:02)
--- NOTE | 2024-06-13 12:02 | W.PN.GS2 ---
Today's Communication / Plan
-
ADA diet
Assessment / Plan
-
58 yo female presenting with acute appendicitis now POD #1 lap appi
AFVSS
Labs stable post op with resolution of leukocytosis
Blood glucose has been labile
--Ok to continue diabetic diet
--Analgesics prn
--OOB/Ambulate
--Ok for discharge from surgical standpoint once clear from medical standpoint/sugars controlled
Subjective Data
-
Date of Service: June 13, 2024
Patient seen and examined at bedside. Tearful as her IV infiltrated earlier this am and her tray was not yet delivered. Otherwise reports a rather uneventful night. Pain is minimal but some soreness to the right side persists. Denies n/v. Passing
some flatus. Tolerated some pizza last night.
Objective Data
-
Intake and Output
06/12/24 06/13/24 06/14/24
06:59 06:59 06:59
Intake Total 100 / 100 730 / 730
Balance 100 / 100 730 / 730
Intake:
Oral fluids 480 / 480
IV fluids (Total) 250 / 250
Normosol 250 / 250
IV piggybacks 100 / 100
Other:
Number of approximated MODERATE 1 3
amounts of urine
Vital Signs
Temp Pulse Resp BP Pulse Ox
99.5 F 96 16 130/87 98
06/13/24 11:32 06/13/24 11:32 06/13/24 11:32 06/13/24 11:32 06/13/24 11:32
Lab Results
06/13/24 08:22
06/13/24 08:22
Calcium 8.8 mg/dl (8.4-10.2) 06/13/24 08:22
Total Bilirubin 0.3 mg/dl (0.2-1.3) 06/13/24 00:46
AST 42 U/L (14-36) H 06/13/24 00:46
ALT 19 U/L (0-35) 06/13/24 00:46
Alkaline Phosphatase 71 U/L (38-126) 06/13/24 00:46
Total Protein 5.8 g/dl (6.3-8.2) L 06/13/24 00:46
Albumin 3.4 g/dl (3.5-5.0) L 06/13/24 00:46
Physical Exam
-
NAD
ABD soft, nt, nd
Incisions with intact glue, well approximated
Patient has a morley catheter: No
Patient has a central line: No
[2024-06-13] MEDS: NOVOLOG FLEXPEN-MODERATE RESISTANCE 3 UNITS SC (12:05)
[2024-06-13] MEDS: NOVOLOG FLEXPEN 10 UNITS SC (12:05)
--- NOTE | 2024-06-13 12:07 | W.PN.HOSP.TC ---
Today's Communication/Plan
-
dc home
Assessment / Plan
Assessment / Plan
Assessment:
Acute uncomplicated appendicitis
- s/p lap appendectomy 06/12
- no further Abx indicated per GS
- OP f/u
CKD stage 3b/4
Acute hyponatremia
- add sodium bicarb TID
- repeat labs Saturday prior to PCP appointment
Poorly controlled IDDM, exacerbated by acute appendicitis
- labelled initially as DKA but initial gap 14 and pH on VBG 7.28, no ketone on UA, BHB normal. not consistent with DKA
- s/p insulin drip; BS <200 rapidly
- A1c 9.6%
- dc on Lantus, Aspart
Elevated Lipase
- not consistent with pancreatitis, likely reactive to acute appendicitis
- repeat stable, no epigastric pain as well
Essential HTN
- continue BB
- continue ARB
HLD - continue statin
Asthma - stable.
- continue montelukast, prn nebs
Anemia
- diluational
- repeat CBC next week
DVT ppx: SC heparin
Code: Full
More than 30 minutes spent in discharge including
Final examination of the patient
Summarizing hospital stay
Instructions for continuing care to all relevant caregivers
Preparation of discharge records, prescriptions, and referral forms
Total time spent (in minutes): 41
Anticipated Discharge: Today
Subjective/Interval History
-
Date of Service: June 13, 2024
no new complaints at present
Objective Data
-
Labs:
Laboratory Results
06/13/24 06/13/24
00:46 08:22
WBC 10.2
Hgb 7.4 L
Hct 20.9 L*
Plt Count 143
Sodium 131 L 132 L
Potassium 4.5 4.3
Chloride 102 104
Carbon Dioxide 16 L 16 L
BUN 33 H 31 H
Creatinine 1.5 H 1.3 H
Glucose 392 H 244 H
Calcium 8.5 8.8
Total Bilirubin 0.3
AST 42 H
ALT 19
Alkaline Phosphatase 71
Vital Signs:
Vital Signs
Temp Pulse Resp BP Pulse Ox
99.5 F 96 16 130/87 98
06/13/24 11:32 06/13/24 11:32 06/13/24 11:32 06/13/24 11:32 06/13/24 11:32
I&O
06/12/24 06/13/24 06/14/24
06:59 06:59 06:59
Intake Total 100 / 100 730 / 730
Balance 100 / 100 730 / 730
Physical Exam
-
General: No Apparent Distress
HEENT: Normocephalic and Atraumatic
Respiratory: Negative Wheezes
Cardiac: Regular Rhythm and S1/S2
GI: Soft and Nontender
Neuro: AO x 3
Hematologic / Lymphatic: No Lymphadenopathy
Psych: Calm
Data Reviewed
-
Total Time Spent with Patient (in minutes): 41
Labs: Labs Reviewed by me
--- NOTE | 2024-06-13 12:12 | W.DS.TRANS ---
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
-
Discharge Instructions:
Discharge Diagnosis/Procedures acute appendicitis s/p appendectomy 06/12.
uncontrolled diabetes
Diet As tolerated,Diabetic, Carb Controlled
Activity No strenuous activity
Additional Activity Do not lift over 15 lbs for the next 3-4 weeks
Driving Restrictions No driving for 24 hours
Bathing Restrictions OK to Shower
Blood Work repeat CBC and BMP Next week (Saturday)
Wound Care Allow the glue to flake off your incisions on
its own over the next 2-3 weeks. Avoid scrubbing
or picking it off
Instructions: Appendectomy - Discharge instructions
Stand-Alone Forms:
Changes to Home Medications: No
Discharge Medications:
DC Medications w/original date entered in [facility]
cyanocobalamin (vitamin B-12) 1,000 mcg tablet 1,000 mcg PO DAILY Supplement 11/21/19
melatonin 5 mg tablet 10 mg PO HS sleep 11/21/19
montelukast 10 mg tablet 10 mg PO QPM Lung/Breathing Issues 11/21/19
acetaminophen 325 mg tablet (Tylenol) 650 mg PO Q6HPRN PRN mild pain 06/11/24
alprazolam 0.5 mg tablet (Xanax) 0.5 mg PO BIDPRN PRN anxiety 06/11/24
dulaglutide 0.75 mg/0.5 mL subcutaneous pen injector (Trulicity) 0.75 mg SC TU Diabetes 06/11/24
fenofibrate micronized 134 mg capsule 134 mg PO DAILY High Cholesterol 06/11/24
insulin glargine 100 unit/mL subcutaneous solution (Lantus U-100 Insulin) 40 units SC HS Diabetes 06/11/24
losartan 25 mg tablet 25 mg PO DAILY Blood Pressure 06/11/24
metoprolol succinate 50 mg tablet,extended release 24 hr (Toprol XL) 50 mg PO DAILY Blood Pressure 06/11/24
mometasone 100 mcg/actuation HFA aerosol inhaler (Asmanex HFA) 1 inh inhalation R BID Lung/Breathing Issues 06/11/24
rosuvastatin 40 mg tablet (Crestor) 40 mg PO DAILY High Cholesterol 06/11/24
oxycodone 5 mg tablet 5 - 10 mg (1 - 2 x 5 mg) PO Q4HPRN PRN moderate to severe pain #14 tabs 06/12/24
insulin aspart U-100 100 unit/mL (3 mL) subcutaneous pen (Novolog FlexPen U-100 Insulin aspart) 10 unit (0.1 mL) SC AC Diabetes #0 mL 06/13/24
sodium bicarbonate 650 mg tablet 650 mg PO TID #90 tabs 06/13/24
Home Medication Changes
Pending Results: No
Total time spent discharging patient (in min): 41
== END 2024-06-13 13:26 | disposition home or self-care (01) | DRG 397 ==
LOC: 3 WEST ACU 21:07
PROVIDERS: Physician Assistant; Registered Nurse; Student in an Organized Health Care Education/Training Program; ADMITTING PHYSICIAN Internal Medicine; ATTENDING PHYSICIAN Internal Medicine; EMERGENCY PHYSICIAN Emergency Medicine; FAMILY PHYSICIAN Family Medicine; OTHER PHYSICIAN Surgery
PROC: 0DTJ4ZZ Resection of Appendix, Percutaneous Endoscopic Approach (ICD-10-PCS; 2024-06-12)
DX: K35.80 Unspecified acute appendicitis (principal); E11.10 Type 2 diabetes mellitus with ketoacidosis without coma; E87.1 Hypo-osmolality and hyponatremia; N17.9 Acute kidney failure, unspecified; N18.4 Chronic kidney disease, stage 4 (severe); I12.9 Hypertensive chronic kidney disease with stage 1 through stage 4 chronic kidney disease, or unspecified chronic kidney disease; E11.22 Type 2 diabetes mellitus with diabetic chronic kidney disease; E78.00 Pure hypercholesterolemia, unspecified; J45.909 Unspecified asthma, uncomplicated; D63.1 Anemia in chronic kidney disease; Z88.0 Allergy status to penicillin; Z79.899 Other long term (current) drug therapy; Z79.4 Long term (current) use of insulin; Z91.199 Patient's noncompliance with other medical treatment and regimen due to unspecified reason
CPT/HCPCS: 88304; 74177; 80048; 80053; 81003; 81015; 82010; 82607; 82728; 82746; 82805; 82962; 83036; 83605; 83690; 85025; 85027; 85610; 86803; 93005; 96365; 96375; 99285; C1776; Q9967

== ENCOUNTER 2024-06-17 17:07 | Emergency (ER) | payer OTHER, SELFPAY ==
[2024-06-17 17:08] VITALS: BMI 30.1
[2024-06-17 17:11] VITALS: BP 148/89
[2024-06-17 17:20] LABS: Glucose - Point of Care 421 mg/dl (70-99)
[2024-06-17 17:34] LABS: % Basophils 0.3 % (0-2); % Eosinophils 1.3 % (0-6); % Immature Granulocytes 2.2 % (0-0.5); % Lymphocytes 19.6 % (20.5-51.1); % Monocytes 8.1 % (1.7-9.3); % Neutrophils 68.5 % (42.2-75.2); Absolute Eosinophils 0.1 10^3/uL (0-0.7); Absolute Immature Granulocytes 0.2 10^3/uL (0-0.05); Absolute Lymphocytes 1.3 10^3/uL (1.2-3.4); Absolute Monocytes 0.5 10^3/uL (0.1-0.6); Absolute Neutrophils 4.6 10^3/uL (1.4-6.5); Hematocrit 25.4 % (37.0-47.0); Hemoglobin 8.7 g/dL (12.0-16.0); Mean Corp Hgb Conc. 34.3 g/dL (33.0-37.0); Mean Corpuscular Hgb 33.9 pg (27.0-31.0); Mean Corpuscular Volume 98.8 fL (81.0-99.0); Nucleated Red Blood Cells % 0 %; Platelet Count 209 10^3/uL (130-400); Red Blood Cell Count 2.57 10^6/uL (4.20-5.40); Red Cell Dist. Width 13.1 % (11.5-14.5); White Blood Cell Count 6.7 10^3/uL (4.8-10.8)
[2024-06-17 17:39] LABS: Venous Blood Gas B.E. -4.8 mmol/L (-4 to +4); Venous Blood Gas HCO3 21.6 mmol/L (22-27); Venous Blood Gas O2 Sat % 62.6 %; Venous Blood Gas pCO2 45 mmHg (35-48); Venous Blood Gas pH 7.29 (7.32-7.43); Venous Blood Gas pO2 37 mmHg (30-50)
[2024-06-17 17:44] LABS: Lactic Acid 1.3 mmol/L (0.7-2.0)
[2024-06-17 18:04] LABS: ALT (SGPT) 22 U/L (0-35); AST (SGOT) 23 U/L (14-36); Albumin 4.1 g/dl (3.5-5.0); Alkaline Phosphatase 157 U/L (38-126); Blood Urea Nitrogen 19 mg/dl (7-17); Calcium 9.4 mg/dl (8.4-10.2); Carbon Dioxide 20 mmol/L (22-30); Chloride 107 mmol/L (98-107); Glucose 421 mg/dl (70-99); Lipase 189 U/L (23-300); Potassium 4.5 mmol/L (3.5-5.1); Sodium 137 mmol/L (135-145); Total Bilirubin 0.4 mg/dl (0.2-1.3); Total Protein 6.7 g/dl (6.3-8.2); eGFR 51.82
[2024-06-17 18:11] LABS: B-Hydroxybutyrate 0.14 mmol/L (0.02-0.27)
--- NOTE | 2024-06-17 18:44 | ED.GENMED ---
History of Present Illness
<Karissa Carr DO - Last Filed: 06/17/24 20:29>
General
Chief Complaint: Blood Sugar Problem
Time Seen by Provider: 06/17/24 17:54
History of Present Illness
History of Present Illness:
58-year-old female with history of insulin-dependent diabetes, CKD, hyperlipidemia presenting for concern of hyperglycemia. Patient notes that her sugar at home was in the 600 range. It then went to the 500 range and dropped to the 300 range. She
went to her primary care doctor who was concerned that she seemed confused and told her to come to the hospital. Patient notes that she was recently in the hospital, admitted from 06/11 to 06/13 which time she was found to be hypoglycemic with acute
appendicitis, had her appendix removed. Notes that her abdomen has been sore, however denies any significant abdominal pain. Does report that she has had some diarrhea after surgery, however that has been improving. Per recent admission, noted to
be poorly controlled diabetic. Patient admits that her diabetes was poorly controlled prior to admission. Her insulin regiment has been adjusted, 10 units with meals and 40 units at bedtime. She notes compliance with her insulin. She denies
fever, chest pain, difficulty breathing. Denies additional acute medical complaints
Past History
<Karissa Carr DO - Last Filed: 06/17/24 20:29>
Past History
ED Past Medical History: None
ED Past Surgical History: None
Phy Exam
<Karissa Carr DO - Last Filed: 06/17/24 20:29>
Physical Exam
Physical Exam:
General: Well-appearing, dry mucous membrane
HEENT: protecting airway
Neck: appears supple
CV: Normal heart rate, regular rhythm
Resp: No accessory muscle use, no increased work of breathing, lungs clear to auscultation bilaterally
Abd: Soft and non-distended, laparoscopic port sites with some mild ecchymosis, no erythema, no drainage. Mild discomfort without significant tenderness on deep palpation
Extremities: No deformities, no swelling
Neuro: alert, no focal neurologic deficit
: deferred
Rectal: deferred
Psych: Normal affect
Skin: Intact
Course
<Karissa Bruno, DO - Last Filed: 06/17/24 20:29>
Orders/Labs/Results
Orders:
Orders
06/17/24 17:24
B-Hydroxybutyrate Urgent
Complete Blood Count/With Diff Urgent
Comprehensive Metabolic Panel Urgent
Lactic Acid Urgent
Lipase Urgent
Venous Blood Gas Urgent
%Oxygen/Room Air: room air
06/17/24 18:43
0.9% Sodium Chloride 1000 ml [Nss] 1,000 ml IV BOLUS
06/17/24 19:27
Insulin Aspart [NOVOLOG vial] 8 units SC NOW STA
06/17/24 19:39
Urinalysis Reflex To Culture Urgent
Date Specimen was Collected: 06/17/24
Time Specimen was Collected: 19:21
06/17/24 21:49
BMP [Basic Metabolic Panel] Urgent
Venous Blood Gas Urgent
%Oxygen/Room Air: 21
Abnormal Lab Results
06/17/24 06/17/24 06/17/24
17:19 17:24 19:39
RBC 2.57 L 10^6/uL
(4.20-5.40)
Hgb 8.7 L g/dL
(12.0-16.0)
Hct 25.4 L %
(37.0-47.0)
MCH 33.9 H pg
(27.0-31.0)
Abs Immat Gran (auto) 0.2 H 10^3/uL
(0-0.05)
Immature Gran % 2.2 H %
(0-0.5)
Lymphocytes % 19.6 L %
(20.5-51.1)
VBG pH 7.29 L
(7.32-7.43)
VBG pO2
VBG HCO3 21.6 L mmol/L
()
Chloride
Carbon Dioxide 20 L mmol/L
(30)
BUN 19 H mg/dl
(7-17)
Creatinine 1.2 H mg/dL
(0.6-1.0)
Glucose 421 H mg/dl
(70-99)
Alkaline Phosphatase 157 H U/L
(38-126)
Urine Glucose 3+ A
(Negative)
POC Glucose 421 H mg/dl
(70-99)
06/17/24 06/17/24
21:45 21:49
RBC
Hgb
Hct
MCH
Abs Immat Gran (auto)
Immature Gran %
Lymphocytes %
VBG pH
VBG pO2 84 H mmHg
(50)
VBG HCO3 19.6 L mmol/L
()
Chloride 109 H mmol/L
(98-107)
Carbon Dioxide 20 L mmol/L
()
BUN
Creatinine 1.1 H mg/dL
(0.6-1.0)
Glucose 241 H mg/dl
(70-99)
Alkaline Phosphatase
Urine Glucose
POC Glucose 269 H mg/dl
(70-99)
06/17/24 17:24
06/17/24 21:49
Vital Signs
Initial and Last Documented VS:
Initial Vital Signs
Temp Pulse Resp BP Pulse Ox
98.7 F 108 20 148/89 96
06/17/24 17:11 06/17/24 17:11 06/17/24 17:11 06/17/24 17:11 06/17/24 17:11
Last Documented Vital Signs
Temp Pulse Resp BP Pulse Ox
98.7 F 108 20 108/74 94
06/17/24 17:11 06/17/24 17:11 06/17/24 17:11 06/17/24 22:00 06/17/24 22:00
<Taya Mina, DO - Last Filed: 06/17/24 22:38>
Orders/Labs/Results
Orders:
Orders
06/17/24 17:24
B-Hydroxybutyrate Urgent
Complete Blood Count/With Diff Urgent
Comprehensive Metabolic Panel Urgent
Lactic Acid Urgent
Lipase Urgent
Venous Blood Gas Urgent
%Oxygen/Room Air: room air
06/17/24 18:43
0.9% Sodium Chloride 1000 ml [Nss] 1,000 ml IV BOLUS
06/17/24 19:27
Insulin Aspart [NOVOLOG vial] 8 units SC NOW STA
06/17/24 19:39
Urinalysis Reflex To Culture Urgent
Date Specimen was Collected: 06/17/24
Time Specimen was Collected: 19:21
06/17/24 21:49
BMP [Basic Metabolic Panel] Urgent
Venous Blood Gas Urgent
%Oxygen/Room Air: 21
Abnormal Lab Results
06/17/24 06/17/24 06/17/24
17:19 17:24 19:39
RBC 2.57 L 10^6/uL
(4.20-5.40)
Hgb 8.7 L g/dL
(12.0-16.0)
Hct 25.4 L %
(37.0-47.0)
MCH 33.9 H pg
(27.0-31.0)
Abs Immat Gran (auto) 0.2 H 10^3/uL
(0-0.05)
Immature Gran % 2.2 H %
(0-0.5)
Lymphocytes % 19.6 L %
(20.5-51.1)
VBG pH 7.29 L
(7.32-7.43)
VBG pO2
VBG HCO3 21.6 L mmol/L
()
Chloride
Carbon Dioxide 20 L mmol/L
(30)
BUN 19 H mg/dl
(7-17)
Creatinine 1.2 H mg/dL
(0.6-1.0)
Glucose 421 H mg/dl
(70-99)
Alkaline Phosphatase 157 H U/L
(38-126)
Urine Glucose 3+ A
(Negative)
POC Glucose 421 H mg/dl
(70-99)
06/17/24 06/17/24
21:45 21:49
RBC
Hgb
Hct
MCH
Abs Immat Gran (auto)
Immature Gran %
Lymphocytes %
VBG pH
VBG pO2 84 H mmHg
(30-50)
VBG HCO3 19.6 L mmol/L
(27)
Chloride 109 H mmol/L
(98-107)
Carbon Dioxide 20 L mmol/L
(-30)
BUN
Creatinine 1.1 H mg/dL
(0.6-1.0)
Glucose 241 H mg/dl
(70-99)
Alkaline Phosphatase
Urine Glucose
POC Glucose 269 H mg/dl
(70-99)
06/17/24 17:24
06/17/24 21:49
Vital Signs
Initial and Last Documented VS:
Initial Vital Signs
Temp Pulse Resp BP Pulse Ox
98.7 F 108 20 148/89 96
06/17/24 17:11 06/17/24 17:11 06/17/24 17:11 06/17/24 17:11 06/17/24 17:11
Last Documented Vital Signs
Temp Pulse Resp BP Pulse Ox
98.7 F 108 20 108/74 94
06/17/24 17:11 06/17/24 17:11 06/17/24 17:11 06/17/24 22:00 06/17/24 22:00
<Karissa Carr DO - Last Filed: 06/17/24 20:29>
MDM/Problems Addressed
MDM/Problems Addressed:
58-year-old female with insulin-dependent diabetes presenting to the emergency department for concern of hyperglycemia. Vital signs on arrival are significant for mild tachycardia.
On exam, patient is in no acute distress. She does have some dryness to her mucous membranes. [id number] glucose elevated. Hyperglycemia versus DKA is a consideration. Plan for laboratory analysis including VBG and beta hydroxybutyrate.
Patient afebrile, without infectious symptoms, lower suspicion for infectious process to hyperglycemia. Patient does note that she has been having some diarrhea after surgery, which may be contributing to volume losses and dehydration. Patient is
awake, alert. is at bedside, notes that she appears to be normal mentation. Will start patient on IV fluids.
20:20 - Patient's hemoglobin is improving from recent discharge. Urine without sign of infection. No leukocytosis. Again without concern for infectious pathology. Patient's sugar is 420. No anion gap. Mild metabolic acidosis. Suspect nongap
acidosis likely from dehydration rather than DKA. No elevation of beta hydroxybutyrate. Plan for IV fluids, insulin and repeat BMP and VBG. Extensive conversation had with patient and at bedside regarding glucose control and compliance
with medications, diet modification.
<Karissa Carr DO - Last Filed: 06/17/24 20:29>
*Critical Care Note
Total Time (30-74mins, 75-104mins- exclusive of procedures): Not Applicable
<Taya Mina DO - Last Filed: 06/17/24 22:38>
Update Note
Update Note:
Repeat VBG shows nonacidotic with pH 7.32. Repeat BMP shows improving creatinine, not in DKA with anion gap 8. On reevaluation, pt's partner says pt looks a lot better, is back to her baseline. Discussed results with pt and partner. Abdomen soft
nondistended nontender no rebound or guarding. Well healing surgical incisions with no overlying erythema or discharge. Mild ecchymosis surrounding incisions. Advised to continue taking insulin as prescribed and to follow up with primary care doctor
regarding elevated glucose. Stable for discharge
ED Attending Note
<Karissa Carr, DO - Last Filed: 06/17/24 20:29>
-
Portions of this chart may have been created with voice recognition software.� Occasional wrong word or��sound alike� substitutions may have occurred due to the inherent limitations of voice recognition software.
Discharge Plan
Departure
Patient Disposition: Home (Routine Discharge)
Date of Disposition: 06/17/24
Time of Disposition: 22:34
Patient with high blood pressure during this ER visit?: No
Condition: Good
Discharge Problem:
Hyperglycemia
Instructions: High blood sugar in adults - ED discharge instructions
Prescriptions:
No Action
cyanocobalamin (vitamin B-12) 1,000 MCG tablet
1,000 mcg PO DAILY
montelukast 10 MG tablet
10 mg PO QPM
melatonin 5 MG tablet
10 mg PO HS
acetaminophen [Tylenol] 325 mg Tablet
650 mg PO Q6HPRN PRN (Reason: mild pain)
metoprolol succinate [Toprol XL] 50 mg Tablet Extended Release 24 Hr
50 mg PO DAILY
fenofibrate micronized 134 mg Capsule
134 mg PO DAILY
alprazolam [Xanax] 0.5 mg Tablet
0.5 mg PO BIDPRN PRN (Reason: anxiety)
losartan 25 mg Tablet
25 mg PO DAILY
rosuvastatin [Crestor] 40 mg Tablet
40 mg PO DAILY
Trulicity 0.75 mg/0.5 mL Pen Injector
0.75 mg SC TU
Asmanex HFA 100 mcg/actuation Hfa Aerosol Inhaler
1 inh INHALATION R BID
insulin glargine [Lantus U-100 Insulin] 1,000 UNITS/10 ML solution
40 units SC HS
oxycodone 5 mg tablet
5 - 10 mg PO Q4HPRN PRN (Reason: moderate to severe pain) Qty: 14 0RF
sodium bicarbonate 650 mg Tablet
650 mg PO TID Qty: 90 0RF
insulin aspart U-100 [Novolog FlexPen U-100 Insulin] 300 UNITS/3 ML insulin pen
10 unit SC AC Qty: 0 0RF
Referrals:
NONE,* [Family Provider] -
Activity Restrictions/Additional Instructions:
You were seen in the emergency department for elevated blood sugar
You were found to have high glucose, which improved with insulin and IV fluids. We component of dehydration. Please continue to drink fluids as tolerated and take your insulin as directed. Please follow-up with your primary care doctor regarding
continued management of your diabetes.
Return to the emergency department for any worsening of your symptoms, or any development of chest pain, difficulty breathing, abdominal pain with persistent vomiting and inability to tolerate food or liquid by mouth (concern for dehydration),
weakness, headache or confusion, fever greater than 100.4, or any additional symptoms that are concerning to you.
Thank you for choosing [facility].
Interventions
Interventions:
*General Assessment Last Done: 06/17/24 17:11
*ED COVID-19 Vaccine History Last Done: 06/17/24 19:58
ED- Neurological Assessment Last Done: 06/17/24 20:27
Discharge Date and Time
Print Language: PERSIAN
[2024-06-17 18:46] VITALS: BP 126/79
[2024-06-17 19:00] VITALS: BP 120/83
[2024-06-17] MEDS: NOVOLOG vial 8 UNITS SC (19:52)
[2024-06-17] MEDS: NSS 1000 IV (19:52)
[2024-06-17 19:55] LABS: Urine Albumin Negative (Neg - Trace); Urine Bilirubin Negative (Negative); Urine Character Clear (Clear); Urine Color Yellow; Urine Glucose 3+ (Negative); Urine Ketone Negative (Negative); Urine Leukocyte Negative (Negative); Urine Nitrite Negative (Negative); Urine Occult Blood Negative (Negative); Urine Urobilinogen Negative (Neg - 1+)
[2024-06-17 20:00] VITALS: BP 114/76
[2024-06-17 21:00] VITALS: BP 99/74
[2024-06-17 21:47] LABS: Glucose - Point of Care 269 mg/dl (70-99)
[2024-06-17 21:55] LABS: Venous Blood Gas HCO3 19.6 mmol/L (22-27); Venous Blood Gas O2 Sat % 98.4 %; Venous Blood Gas pCO2 38 mmHg (35-48); Venous Blood Gas pH 7.32 (7.32-7.43); Venous Blood Gas pO2 84 mmHg (30-50)
[2024-06-17 22:00] VITALS: BP 108/74
[2024-06-17 22:15] LABS: Blood Urea Nitrogen 17 mg/dl (7-17); Calcium 8.5 mg/dl (8.4-10.2); Carbon Dioxide 20 mmol/L (22-30); Chloride 109 mmol/L (98-107); Estimated Creatinine Clearance 47 ml/min; Glucose 241 mg/dl (70-99); Potassium 3.9 mmol/L (3.5-5.1); Sodium 137 mmol/L (135-145); eGFR 57.52
== END 2024-06-17 23:04 | disposition home or self-care (01) ==
LOC: EMR 17:07
PROVIDERS: Student in an Organized Health Care Education/Training Program; EMERGENCY PHYSICIAN Emergency Medicine
DX: E11.22 Type 2 diabetes mellitus with diabetic chronic kidney disease (principal); E11.65 Type 2 diabetes mellitus with hyperglycemia; N18.9 Chronic kidney disease, unspecified; E78.5 Hyperlipidemia, unspecified; Z79.4 Long term (current) use of insulin
CPT/HCPCS: 96372; 96360; 99284; 80048; 80053; 81003; 82010; 82805; 82962; 83605; 83690; 85025